=== PATIENT | female | born 1980 | race Caucasian/White ===

== ENCOUNTER → 2018-08-14 | Outpatient (CLI) | payer OTHER ==
[~2018-08-14] MED LIST: CALC-58; CETI-176 PO; DESO1TAB74 PO; DICL-195 PO; FLU60VIA41 IM; LAN30PT PO; LANS15CA54 PO; METF-450 PO; TIZA-1 PO; [UNRECOGNIZED DRUG - CODE] PO
--- NOTE | 2018-08-14 10:11 | RADIOLOGY IMAGING REPORT ---
FACILITY: [facility] [place] PATIENT NAME: Jesi Francis : 1980 MR: [id number] V: [id number] EXAM DATE: ORDERING PHYSICIAN: BIANCA SANCHES TECHNOLOGIST: Location: [facility] Patient: Jesi Francis : 1980 Visit/Account:[id number] Date of Sevice: 08/14/2018 Technique: KNEE 3 VIEW LEFT HISTORY: Left knee pain Comparison studies: None FINDINGS: There is no acute fracture. The alignment of the left knee is maintained knee joint effusi on is present. IMPRESSION: 1. No acute osseous process. Report Dictated By: Cesar Brown DO at 08/14/2018 10:01 AM Report E-Signed By: Cesar Brown DO at 08/14/2018 10:07 AM WSN:[id number]
== END ==
LOC: RAD 09:32
PROVIDERS: ATTEND Nurse Practitioner Family
DX: M25.561 Pain in right knee (principal)